=== PATIENT | male | born 1990 | race Two or more races ===

== ENCOUNTER 2016-06-11 20:21 | Emergency (ER) | payer SELFPAY ==
[~2016-06-11] VITALS: Ht 182.9 cm; Wt 113.4 kg
[2016-06-11] MEDS ORDERED: LORAZEPAM 1 MG TABLET ONE (21:17)
[2016-06-11] MEDS: LORAZEPAM 1 MG TABLET PO ONE (21:21)
[2016-06-11] MEDS: LORAZEPAM INJ 2 MG/ML VIAL IV ONE (21:21)
[2016-06-11 22:04] VITALS: BP 135/85
== END 2016-06-11 22:05 | disposition home or self-care (01) ==
LOC: ER 20:24
DX: R00.2 Palpitations (principal); F41.9 Anxiety disorder, unspecified; F15.10 Other stimulant abuse, uncomplicated; F17.210 Nicotine dependence, cigarettes, uncomplicated; F10.20 Alcohol dependence, uncomplicated
CPT/HCPCS: A4606; Z7610

== ENCOUNTER 2018-08-26 14:15 | Emergency (ER) | payer MEDICAID ==
[~2018-08-26] VITALS: Ht 180.3 cm; Wt 112.5 kg
[2018-08-26 14:26] VITALS: BP 150/98
[2018-08-26] MEDS ORDERED: LIDOCAINE 1% INJ 50 ML MDV IJ ONE (15:00)
[2018-08-26] MEDS ORDERED: TDAP [DIPH/PERTUSSIS/TET] 0.5 ML VIAL IM ONE ×2 (15:00→15:10)
[2018-08-26] MEDS ORDERED: LIDOCAINE HCL/MPF 1% 30 ML VIAL IJ ONE (15:25)
== END 2018-08-26 15:57 | disposition home or self-care (01) ==
LOC: ER 14:15
DX: L02.511 Cutaneous abscess of right hand (principal); L03.011 Cellulitis of right finger; F15.90 Other stimulant use, unspecified, uncomplicated; F12.90 Cannabis use, unspecified, uncomplicated; Z59.0 Homelessness; Z98.890 Other specified postprocedural states
CPT/HCPCS: 10060; 73130; 90471; 90715; 99283; A6402 ×2; J3490

== ENCOUNTER 2018-08-29 04:32 | Inpatient (IN) | payer MEDICAID, OTHER ==
[~2018-08-29] VITALS: Ht 180.3 cm; Wt 101.6 kg
--- NOTE | 2018-08-29 04:42 | NUR ---
BIBS. C/O "PAIN IN MY FINGERS FOR 5X HRS" -INJURY NOTED. AOX4. AMBULATORY -ACUTE DISTRESS.
[2018-08-29] MEDS ORDERED: VANCOMYCIN 1 GM in IV D5W 250 ML IV ONE (05:30)
[2018-08-29] MEDS ORDERED: PIPERACILLIN /TAZOBACTAM 3.375 G in IV D5W 50 ML IV ONE (05:30)
[2018-08-29] MEDS ORDERED: PIPERACILLIN /TAZOBACTAM 3.375 G VIAL IV ONE (05:39)
[2018-08-29] MEDS ORDERED: VANCOMYCIN 1 GM VIAL ONE (05:39)
[2018-08-29 05:45] LABS: BASOPHILS # (AUTO) 0.1 /CMM (0.0-0.2); BASOPHILS % (AUTO) 0.4 % (0.0-2.0); EOSINOPHILS % (AUTO) 0.7 % (0.0-6.0); HEMATOCRIT 39 % (39-51); HEMOGLOBIN 13.3 g/dL (13.5-17.5); LYMPHOCYTES # (AUTO) 1.5 /CMM (0.8-4.8); LYMPHOCYTES % (AUTO) 8.3 % (20.0-44.0); MEAN CORPUSCULAR HGB CONC 34 g/dl (31.0-36.0); MEAN CORPUSCULAR VOLUME 91 fL (80-96); MONOCYTES # (AUTO) 0.8 /CMM (0.1-1.30); MONOCYTES % (AUTO) 4.8 % (2.0-12.0); NEUTROPHILS # (AUTO) 15.1 /CMM (1.8-8.9); NEUTROPHILS % (AUTO) 85.8 % (43.0-81.0); PLATELET COUNT (AUTO) 293 /CMM (150-450); WHITE BLOOD COUNT (AUTO) 17.6 K/uL (4.3-11.0)
[2018-08-29 05:55] LABS: CALCIUM, SERUM 8.3 mg/dL (8.5-10.1); CREATININE 0.7 mg/dL (0.6-1.3); POTASSIUM 3.8 mmol/L (3.5-5.1)
[2018-08-29 06:00] LABS: APPEARANCE,URINE Clear (CLEAR); BILIRUBIN,URINE Negative (NEGATIVE); BLOOD, URINE Negative Ery/uL (NEGATIVE); COLOR,URINE Yellow (YELLOW); KETONES,URINE Negative (NEGATIVE); LEUKOCYTE ESTERASE ,URINE Negative (NEGATIVE); NITRITE, URINE Negative (NEGATIVE); PH,URINE 7.5 (5.0-8.0); PROTEIN,URINE Negative (NEGATIVE); UGLUCOSE Negative (NEGATIVE)
[2018-08-29 06:00] LABS: ALBUMIN 3.2 g/dL (3.4-5.0); BILIRUBIN,TOTAL 0.3 mg/dL (0.2-1.0); C-REACTIVE PROTEIN 5.8 mg/dL (0.0-0.9); TOTAL PROTEIN, SERUM 6.8 g/dL (6.4-8.2)
[2018-08-29 06:44] LABS: BACTERIA,URINE Rare /HPF (None Seen); RBC,URINE 0-2 /HPF (0-2); SQUAMOUS EPITHELIAL CELL,UR Rare /HPF (None Seen); WBC,URINE NONE SEEN /HPF (0-3)
--- NOTE | 2018-08-29 08:07 | NUR ---
RECEIVED REPORT FROM KATHIE MILLER. PATIENT RESTING INSIDE ROOM. SLEEPING, VERBALLY RESPONDS TO VERBAL AND TACTILE STIMULI. NO ACUTE DISTRESS AT THIS TIME. WILL CONTINUE TO MONITOR
--- NOTE | 2018-08-29 10:18 | NUR ---
Called [facility] for update, Still waiting to hear from ORTHO
--- NOTE | 2018-08-29 12:06 | NUR ---
PAGED SALMA LICONA FOR CONSULT.
--- NOTE | 2018-08-29 12:29 | NUR ---
PAGED DR. GREEN FOR CONSULT
--- NOTE | 2018-08-29 12:30 | NUR ---
PAGED DR. BARROSO FOR ADMISSION
[2018-08-29] MEDS ORDERED: LIDOCAINE 1%-EPI 1:100,000 20 ML VIAL ONE (12:33)
[2018-08-29] MEDS ORDERED: SULF1TAB48 PO (12:41)
[2018-08-29] MEDS ORDERED: CEPH-570 PO (12:41)
--- NOTE | 2018-08-29 12:41 | NUR ---
CALLED HOUSE SUP FOR MS BED
--- NOTE | 2018-08-29 12:46 | NUR ---
MS 112-1
--- NOTE | 2018-08-29 14:40 | NUR ---
MS1/BENEFITS SPECIALIST TO DE1 - ROOM 112#1 PT ARRIVED VIA GURNEY FROM ER ACCOMPANIED BY KILN FIRER HELPER, TRANSFERRED TO HOSPITAL BED, PT A/O X 4, DENIES ANY PAIN AT THIS TIME. SURGICAL SITE ON RIGHT HAND DRESSED. PT ON ROOM AIR, IV SITE FLUSHED, PATENT WITH NO S/S OF INFECTION. PT ADMITTED FOR FLEXOR TENOSYNOVITIS UNDER THE CARE OF DR. HEARD. WILL BE GETTING REPORT FROM ER NURSE. CL WITHIN REACHED AND SAFETY MAINTAINED.
[2018-08-29] MEDS ORDERED: ZOLPIDEM TARTRATE 5 MG TABLET PO PRN (15:00)
[2018-08-29] MEDS ORDERED: ACETAMINOPHEN 325 MG TABLET PO PRN (15:00)
[2018-08-29] MEDS ORDERED: MAG HYDROX/AL HYDROX/SIMETH 30 ML UDC PO PRN (15:00)
[2018-08-29] MEDS ORDERED: ONDANSETRON HCL/PF 4 MG/2 ML VIAL IVP PRN (15:00)
[2018-08-29] MEDS ORDERED: MAGNESIUM HYDROXIDE 30 ML UDC PO PRN (15:00)
[2018-08-29] MEDS ORDERED: Z GUARD REMEDY 2 OZ OINT TP PRN (15:00)
[2018-08-29] MEDS ORDERED: HYDROCODONE/APAP 5/325MG 1 EACH TABLET PO PRN (15:00)
[2018-08-29 16:00] VITALS: BP 133/87
[2018-08-29] MEDS ORDERED: FEE PK DOSING 1 MIN EA MC ONE (16:35)
--- NOTE | 2018-08-29 17:30 | NUR ---
MS1/RN AM SHIFT END NOTES INFUSION ANTI-BIOTICS ON GOING. PT NOTED WITH NO ACUTE CHANGE OF CONDITION SINCE PT WAS ADMITTED LATE THIS AFTERNOON, ENDORSED TO PM NURSE TO CONTINUE CARE.
[2018-08-29] MEDS ORDERED: PIPERACILLIN /TAZOBACTAM 4.5 G in IV D5W 50 ML IV SCH (18:00)
[2018-08-29] MEDS ORDERED: IV NS 0.9% 250 ML BAG IV ONE (18:00)
[2018-08-29] MEDS: VANCOMYCIN 1.25 GM in IV D5W 500 ML IV SCH (18:46)
--- NOTE | 2018-08-29 19:30 | NUR ---
MS RN NOTE: RECEIVED PT ON BED ASLEEP BUT AROUSES EASILY TO VERBAL AND TACTILE STIMULI. NO ACUTE DISTRESS NOTED. DENIES PAIN AND DISCOMFORT AT THIS TIME. ON ROOM AIR, NO SOB NOTED. IV ON RIGHT ANTECUBITAL #18 INTACT AND PATENT, IVF INFUSING WELL. KEPT CLEAN, DRY AND COMFORTABLE. CALL LIGHT PLACED WITHIN REACH. SAFETY AND FALL PRECAUTIONS OBSERVED AND MAINTAINED. WILL CONTINUE TO MONITOR PT.
[2018-08-29 20:00] VITALS: BP 136/87
[2018-08-29] MEDS: PIPERACILLIN /TAZOBACTAM 3.375 G in IV D5W 50 ML IV SCH (23:10)
[2018-08-30] MEDS: VANCOMYCIN 1.25 GM in IV D5W 500 ML IV SCH ×2 (00:42→08:26)
[2018-08-30 04:00] VITALS: BP 125/78
[2018-08-30] MEDS: PIPERACILLIN /TAZOBACTAM 3.375 G in IV D5W 50 ML IV SCH ×3 (05:18→17:05)
[2018-08-30 06:28] LABS: BASOPHILS # (AUTO) 0.1 /CMM (0.0-0.2); BASOPHILS % (AUTO) 0.6 % (0.0-2.0); EOSINOPHILS % (AUTO) 2.2 % (0.0-6.0); HEMATOCRIT 40 % (39-51); HEMOGLOBIN 13.7 g/dL (13.5-17.5); LYMPHOCYTES # (AUTO) 1.5 /CMM (0.8-4.8); MEAN CORPUSCULAR HGB CONC 34 g/dl (31.0-36.0); MEAN CORPUSCULAR VOLUME 90 fL (80-96); MONOCYTES # (AUTO) 0.7 /CMM (0.1-1.30); MONOCYTES % (AUTO) 6.1 % (2.0-12.0); NEUTROPHILS # (AUTO) 9.1 /CMM (1.8-8.9); NEUTROPHILS % (AUTO) 78.1 % (43.0-81.0); PLATELET COUNT (AUTO) 307 /CMM (150-450); RED BLOOD CELL COUNT(AUTO) 4.44 MIL/uL (4.5-6.0); WHITE BLOOD COUNT (AUTO) 11.7 K/uL (4.3-11.0)
--- NOTE | 2018-08-30 06:31 | NUR ---
MS RN NOTE: NO CHANGES NOTED THROUGHOUT THE SHIFT. NO APPARENT DISTRESS NOTED. NO COMPLAINTS OF PAIN OR DISCOMFORT AT THIS TIME. NO SOB NOTED. IV ON RIGHT ANTECUBITAL #18 INTACT AND PATENT, FLUSHING WELL. CALL LIGHT PLACED WITHIN REACH. KEPT CLEAN, DRY AND COMFORTABLE. SAFETY AND FALL PRECAUTIONS OBSERVED AND MAINTAINED. WILL ENDORSE TO DAY SHIFT RN FOR CONTINUITY OF CARE.
[2018-08-30 06:52] LABS: CALCIUM, SERUM 8.9 mg/dL (8.5-10.1); CREATININE 0.7 mg/dL (0.6-1.3); MAGNESIUM 2.2 mg/dL (1.8-2.4); PHOSPHORUS 4.6 mg/dL (2.5-4.9); POTASSIUM 4.1 mmol/L (3.5-5.1)
--- NOTE | 2018-08-30 07:34 | NUR ---
MS RN NOTE: RECEIVED PT ON BED AWAKE , ALERT , ORIENTED X3 , NO ACUTE DISTRESS NOTED. DENIES PAIN AND DISCOMFORT AT THIS TIME. ON ROOM AIR, NO SOB NOTED. IV ON RIGHT ANTECUBITAL #18 INTACT AND PATENT, WELL. KEPT CLEAN, DRY AND COMFORTABLE. CALL LIGHT PLACED WITHIN REACH. SAFETY AND FALL PRECAUTIONS OBSERVED AND MAINTAINED. WILL CONTINUE TO MONITOR PT.CASTILLO OF CARE DISCUSSED WITH PATIENT ,
[2018-08-30 08:00] VITALS: BP 140/82
--- NOTE | 2018-08-30 13:28 | NUR ---
MS RN NOTE NOTED RT POSTERIOR THIGH WITH WOUND, PX DONE WOUND CARE CONSULT ORDERED ,NOTIFIED TO DR DOS SANTOS WILL F\U
--- NOTE | 2018-08-30 13:57 | NUR ---
SOLAR MAINTENANCE TECHNICIAN NOTE DR DOS SANTOS AT BEDSIDE SEEN WOUND RT THIGH
--- NOTE | 2018-08-30 14:16 | NUR ---
Social service consult requested by Daniel Garsia for homelessness and per pt statement that he uses meth. mat worker attempted to meet with pt at bedside, pt was deep asleep and did not respond to social work professor. Social work will attempt to meet with pt again prior to discharge.
--- NOTE | 2018-08-30 14:44 | NUR ---
ms rn note dr miller surgeon cover dr langley today, spoke with melina salinas endorsed to call ,per dr kasper patient need surgical consult, transferred patient in room 206 with stable condition , report given to melina salinas
--- NOTE | 2018-08-30 14:45 | NUR ---
MS RN NOTES PATIENT TRANSFER FROM [facility] J REPORT GIVEN BY KACI. PATIENT ALERT ORIENTED X 4. NO ACUTE DISTRESS NOTED. SAFETY MEASURES IN PLACE. CALL LIGHT WITHIN REACH. WILL CONTINUE TO MONITOR ACCORDINGLY.
--- NOTE | 2018-08-30 15:36 | NUR ---
MS RN NOTES SPOKE WITH KACI CEVALLOS NOTIFIED REGARDING CONSULT.
[2018-08-30 16:00] VITALS: BP 134/75
[2018-08-30] MEDS: VANCOMYCIN 1.5 GM in IV D5W 500 ML IV SCH (18:42)
--- NOTE | 2018-08-30 19:00 | NUR ---
MS RN NOTES PATIENT IN BED ALERT ORIENTED X 4. NO ACUTE DISTRESS NOTED. BREATHING UNLABORED. NO SOB NOTED. IV ACCESS PATENT AND INTACT, NO REDNESS OR SWELLING NOTED. DUE MEDICATIONS GIVEN, NO ASE NOTED. NEEDS ATTENDED AND ANTICIPATED. KEPT CLEAN DRY AND COMFORTABLE. SAFETY MEASURES IN PLACE. CALL LIGHT WITHIN REACH. ENDORSED TO NIGHT NURSE FOR CONTINUITY OF CARE.
[2018-08-30 20:00] VITALS: BP 120/78
--- NOTE | 2018-08-30 20:11 | NUR ---
RN OPENING NOTES RECEIVED PATIENT RESTING COMFORTABLY IN BED. PATIENT SHOWS NO SIGNS OF RESPIRATORY DISTRESS. NO SIGNS SHORTNESS OF BREATH. IV SITE INTACT. PATIENT SHOWS NO SIGNS OF PAIN OR DISCOMFORT AT THIS TIME. SAFETY PRECAUTIONS IMPLEMENTED. CALL LIGHT WITHIN REACH. WILL CONTINUE TO MONITOR PATIENT THROUGHOUT THE SHIFT.
[2018-08-30 20:12] VITALS: BP_SYST 120; BP_SYST 142; BP_DIAS 78; BP_DIAS 81
[2018-08-31] MEDS: VANCOMYCIN 1.5 GM in IV D5W 500 ML IV SCH ×2 (02:08→10:10)
[2018-08-31 04:00] VITALS: BP 121/80
--- NOTE | 2018-08-31 05:11 | NUR ---
RN NOTES HAND/FINGER WOUNDS WAS IRRIGATED WITH NS, WRAPPED WITH XEROFORM, THEN TAPED WITH KERLIX. THIGH ABSCESS WAS IRRIGATED WITH NS, PAT DRY, APPLIED XEROFORM DRESSING, AND TAPED DOWN WITH ABD. DRAINAGE IS SEEN.
[2018-08-31] MEDS: PIPERACILLIN /TAZOBACTAM 3.375 G in IV D5W 50 ML IV SCH ×4 (06:31→11:33)
[2018-08-31 06:36] LABS: BASOPHILS # (AUTO) 0.1 /CMM (0.0-0.2); BASOPHILS % (AUTO) 0.9 % (0.0-2.0); EOSINOPHILS % (AUTO) 4.2 % (0.0-6.0); HEMATOCRIT 40 % (39-51); HEMOGLOBIN 13.9 g/dL (13.5-17.5); LYMPHOCYTES # (AUTO) 1.6 /CMM (0.8-4.8); LYMPHOCYTES % (AUTO) 19.4 % (20.0-44.0); MEAN CORPUSCULAR HGB CONC 35 g/dl (31.0-36.0); MEAN CORPUSCULAR VOLUME 91 fL (80-96); MONOCYTES # (AUTO) 0.6 /CMM (0.1-1.30); MONOCYTES % (AUTO) 7.5 % (2.0-12.0); NEUTROPHILS # (AUTO) 5.6 /CMM (1.8-8.9); PLATELET COUNT (AUTO) 323 /CMM (150-450); WHITE BLOOD COUNT (AUTO) 8.2 K/uL (4.3-11.0)
[2018-08-31 06:45] LABS: CALCIUM, SERUM 8.7 mg/dL (8.5-10.1); CREATININE 0.8 mg/dL (0.6-1.3); PHOSPHORUS 4.5 mg/dL (2.5-4.9); POTASSIUM 4.1 mmol/L (3.5-5.1)
--- NOTE | 2018-08-31 07:00 | NUR ---
RN CLOSING NOTES PATIENT IS RESTING COMFORTABLY IN BED. PATIENT SHOWS NO SIGNS OF RESPIRATORY DISTRESS. NO SIGNS OF SHORTNESS OF BREATH. IV SITE INTACT. PATIENT SHOWS NO SIGNS OF PAIN OR DISCOMFORT AT THIS TIME. WOUND TX WAS IMPLEMENTED. SAFETY PRECAUTIONS IMPLEMENTED. CALL LIGHT WITHIN REACH. WILL ENDORSE TO AM RN.
--- NOTE | 2018-08-31 07:21 | NUR ---
WOUND CARE CONSULT WOUND CARE RECEIVED CONSULT FOR R POSTERIOR THIGH WOUND/ABSCESS. WOUND CARE WILL DEFER CONSULT AND TREATMENT PLAN TO GENERAL SURGEON DR KOHLER WHO IS CURRENTLY FOLLOWING THIS PATIENT. PLASTIC SURGICAL TEAM ALSO FOLLOWING THIS PATIENT FOR FINGER WOUNDS. PATIENT WITH PHILIP AT 22, WILL SEE PRN.
--- NOTE | 2018-08-31 07:36 | NUR ---
RN OPENING NOTE PT WAS RECEIVED IN BED AT LOWEST AND LOCKED POSITION WITH SIDE RAILS UPX2, BREATHING EVEN AND UNLABORED ON RA, A/O X4, NO S/S OF ANY DISTRESS OR PAIN AT THIS TIME, IV IS PATENT AND INTACT, AMBULATORY, SAFETY PRECAUTIONS IN PLACE, CALL LIGHT WITHIN REACH, WILL MONITOR PT ACCORDINGLY
[2018-08-31 08:00] VITALS: BP 122/71
--- NOTE | 2018-08-31 08:10 | NUR ---
RN NOTE PT WAS NPO AT THIS FOR SCHEDULED INCISION AND DRAINAGE UNDER ANESTHESIA, HOWEVER BY MISTAKE BAR WAITER/WAITRESS GAVE PT FOOD WHICH HE SCARFED DOWN, MADE AWARE.
--- NOTE | 2018-08-31 10:32 | NUR ---
RN NOTE DR KOHLER OFFICE WAS PAGED REGARDING STATUS OF PT I&D, AWAITING RESPONSE
[2018-08-31] MEDS ORDERED: LORAZEPAM INJ 2 MG/ML VIAL IV PRN (12:00)
[2018-08-31] MEDS ORDERED: LORAZEPAM 1 MG TABLET PO PRN (12:00)
[2018-08-31 12:03] VITALS: BP 122/71
--- NOTE | 2018-08-31 14:25 | NUR ---
Social service consult requested by Dr. Sanchez for homelessness. Pt. is a 28 year old male who was admitted to [facility] for flexor tenosynovitis. SW met with pt. bedside. Pt. is alert and oriented x 4. Pt. appears hostile and angry when answering questions. Pt. reluctantly participated in the assessment. Pt. states he is homeless for 35 days. Prior to being homeless, pt. was residing with his family in [place]. Pt. would not elaborate as to why he left his family. Pt. does not have an emergency contact. Pt. is rude with SW when answering questions. Pt. declined all resources. Pt. denies drug and alcohol use. Pt. is not very forthcoming with information at this time. No other social service needs are required at this time.
--- NOTE | 2018-08-31 14:55 | NUR ---
AMA NOTE PT LEFT AMA AT THIS TIME, HE STATED THAT HE DID NOT LIKE THAT HE HAD TO STAY NPO FOR INISION AND DRAINAGE THAT WAS SCHEDULED. HE WAS INFORMED AND EDUCATED TO WHY HE SHOULD STAY AND WHY HE NEED THE INCISION AND DRAINAGE TO BE DONE. HE DID NOT WANT TO HEAR IT AND SAID HE JUST WANTED TO LEAVE, HE DID NOT WANT ANY PAPERWORK EITHER. IV AND ID BAND WERE REMOVED AND HE LEFT AMA AT THIS TIME. Addendum: 08/31/18 at 1542 by JENNIFER MURPHY RN Unique Id: [id number]
== END 2018-08-31 14:55 | disposition left against medical advice (07) | DRG 364 ==
LOC: ER 04:34 → MEDSG1 14:24 → MEDSG2 08-30 14:40 → MED 08-30 15:24 → MEDSG2 08-30 15:26
PROC: 0J9J0ZZ Drainage of Right Hand Subcutaneous Tissue and Fascia, Open Approach (ICD-10-PCS; principal; 2018-08-29)
DX: L03.011 Cellulitis of right finger (principal); L02.415 Cutaneous abscess of right lower limb; F15.10 Other stimulant abuse, uncomplicated; L02.511 Cutaneous abscess of right hand; M65.9 Synovitis and tenosynovitis, unspecified; Z59.0 Homelessness; Z72.0 Tobacco use
CPT/HCPCS: 36415; 71045-TC; 73140-TC; 80048-TC; 80053-TC; 80061-TC; 80202-TC; 81000-TC; 83605-TC; 83735-TC; 84100-TC; 85025-TC; 85652-TC; 85730-TC; 86140-TC; 86850-TC; 87070-TC; 87081-TC; A6253; A6402; G0378; J2543; J3370; J3490; J7050; J7060

== ENCOUNTER 2018-09-23 00:34 | Emergency (ER) | payer OTHER ==
[~2018-09-23] VITALS: Ht 177.8 cm; Wt 95.3 kg
[~2018-09-23 00:34] MED LIST: CEPH-570 PO; SULF1TAB48 PO
--- NOTE | 2018-09-23 00:44 | NUR ---
PT WAS BIB RA WITH A C/O DRUG ABUSE/METH ABUSE. PT DENIES SI AND AUDITORY HALLUCINATIONS. PT APPEARS EMOTIONAL. PT WAS TRIAGED AND TAKEN TO ROOM #12. PT IS ON THE MONITOR AND CONTINUOUS PULSE OX. URINE SAMPLE WAS OBTAINED AND SENT TO LAB.
[2018-09-23] MEDS ORDERED: MAG HYDROX/AL HYDROX/SIMETH 30 ML UDC ONE (01:15)
--- NOTE | 2018-09-23 02:08 | NUR ---
PT APPEARS TO BE SLEEPING SOUNDLY WITH NO S/S OF PAIN OR DISTRESS. RESP EVEN AND UNLABORED. VSS. WILL CONTINUE TO MONITOR THE PT.
--- NOTE | 2018-09-23 03:45 | NUR ---
PT APPEARS TO BE SLEEPING SOUNDLY WITH NO S/S OF PAIN OR DISTRESS.
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
--- NOTE | 2018-09-23 05:50 | NUR ---
PT WAS MOVED TO ER7. PT REC'D WARM BLANKETS AND APPEARS TO BE RESTING COMFORTABLY.
--- NOTE | 2018-09-23 06:39 | NUR ---
PT APPEARS TO BE RESTING COMFORTABLY WITH NO S/S OF PAIN OR DISTRESS.
--- NOTE | 2018-09-23 07:24 | NUR ---
REPORT GIVEN TO ANGELA TINSLEY FOR ERA.
--- NOTE | 2018-09-23 08:00 | NUR ---
patient still sleeping. no distress noted. will cont to monitor.
[2018-09-23 09:30] VITALS: BP 134/85
--- NOTE | 2018-09-23 10:00 | NUR ---
BARTOLO received a call from ANGELA Clark in ED requesting for SW consult for homelessness. Pt. is a 28 year old male who was brought to [facility] ED via ambulance for methamphetamine abuse. BARTOLO and pt's ANGELA Clark met with pt. bedside. Pt. is alert and oriented x 4. Pt. appears disheveled. SW is familiar with pt. from a previous inpatient admission where pt. left AMA. Pt. states he is homeless and has been for the past 72 days. BARTOLO offered pt. homeless penitentiary placement, however pt. declined stating he will take the resources. Pt. appears to be paranoid about "gangsters" and stated, " too many gangsters are after me." SW inquired with pt. if he has any gang affiliation and pt. stated, "No." Pt. uses methamphetamines and has been for the past 3 years. BARTOLO offered pt. drug treatment programs and referrals, however pt. declined stating again, " too many gangsters are after me." BARTOLO encouraged pt. to take the resources, which he did. BARTOLO gave pt. the following resources: [facility] located at [address] [facility] ; [employer] [facility] [place], [address] [place] [address], [place]. [place] ; [facility] [place], [address] [facility] ; [facility] Homeless Resource Directory which includes food stamps, transitional housing, showers and hot meals etc; Mental Health clinics such as [facility] ; [facility] ; Health clinics;[facility] and Alcohol treatment centers such as [facility], ; [facility] Substance Abuse Hotline and [facility] . Pt. was provided with a TAP card, sandwich and water. Homeless patient waiver form was signed by the pt. and placed in pt's chart along with copy of resources that were provided to the pt.
--- NOTE | 2018-09-23 10:06 | NUR ---
PATIENT SEEN BY REAL ESTATE AGENCY LICENSEE ABDIAZIZ, OFFERED SKILLED NURSING RESOURCES, AND A TAP CARD, GIVEN FOOD AND WATER. PATIENT GIVEN DISCHARGE INSTRUCTIONS AND VERBALIZED UNDERSTANDING. LEFT IN STABLE CONDITION.
== END 2018-09-23 10:10 | disposition home or self-care (01) ==
LOC: ER 00:35
DX: F15.90 Other stimulant use, unspecified, uncomplicated (principal); Z98.890 Other specified postprocedural states

== ENCOUNTER 2018-11-15 12:46 | Emergency (ER) | payer OTHER ==
[~2018-11-15] VITALS: Ht 182.9 cm; Wt 92.1 kg
[2018-11-15 13:07] VITALS: BP 100/75
--- NOTE | 2018-11-15 14:35 | NUR ---
For discharge-Patient discharged to home in stable condition. Written and verbal after care instructions given. Patient verbalizes understanding of instruction.
== END 2018-11-15 14:36 | disposition home or self-care (01) ==
LOC: ER 12:48
DX: S60.462A Insect bite (nonvenomous) of right middle finger, initial encounter (principal); S90.562A Insect bite (nonvenomous), left ankle, initial encounter; F10.10 Alcohol abuse, uncomplicated; F17.200 Nicotine dependence, unspecified, uncomplicated; F12.10 Cannabis abuse, uncomplicated; F15.10 Other stimulant abuse, uncomplicated; Y90.9 Presence of alcohol in blood, level not specified; Z98.890 Other specified postprocedural states; Z59.0 Homelessness; W57.XXXA Bitten or stung by nonvenomous insect and other nonvenomous arthropods, initial encounter; Y93.89 Activity, other specified; Y92.89 Other specified places as the place of occurrence of the external cause; Y99.8 Other external cause status

== ENCOUNTER 2019-01-30 01:55 | Emergency (ER) | payer OTHER ==
[~2019-01-30] VITALS: Ht 177.8 cm; Wt 81.6 kg
[2019-01-30 02:28] VITALS: BP 146/73
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
[2019-01-30] MEDS ORDERED: LORAZEPAM 1 MG TABLET ONE (02:57)
[2019-01-30] MEDS ORDERED: LORAZEPAM 1 MG TABLET PO ONE (03:00)
--- NOTE | 2019-01-30 03:40 | NUR ---
Patient eloped from facility. ER MD notified.
== END 2019-01-30 04:35 | disposition left against medical advice (07) ==
LOC: ER 01:57
DX: F41.9 Anxiety disorder, unspecified (principal); F15.90 Other stimulant use, unspecified, uncomplicated; F17.200 Nicotine dependence, unspecified, uncomplicated; Z98.890 Other specified postprocedural states; Z59.0 Homelessness

== ENCOUNTER 2020-08-17 13:34 | Emergency (ER) | payer OTHER ==
[~2020-08-17] VITALS: Ht 180.3 cm; Wt 127.0 kg
[2020-08-17 13:35] VITALS: BP 142/100
--- NOTE | 2020-08-17 14:10 | NUR ---
SEEN AND EXAMINED BY .
[2020-08-17] MEDS ORDERED: NEOM10DR11 OT (14:13)
--- NOTE | 2020-08-17 14:19 | NUR ---
Patient discharged to home in stable condition. Written and verbal after care instructions given. Patient verbalizes understanding of instruction.
== END 2020-08-17 14:20 | disposition home or self-care (01) ==
LOC: ER 13:39
DX: H60.91 Unspecified otitis externa, right ear (principal); F12.90 Cannabis use, unspecified, uncomplicated; Z98.890 Other specified postprocedural states; Z79.899 Other long term (current) drug therapy

== ENCOUNTER 2020-12-08 15:26 | Emergency (ER) | payer OTHER ==
[~2020-12-08] VITALS: Ht 162.6 cm; Wt 108.9 kg
[2020-12-08 15:26] VITALS: BP 125/96
[~2020-12-08 15:26] MED LIST changes: +NEOM10DR11 OT
[2020-12-08] MEDS ORDERED: OLANZAPINE 5 MG TABLET PO ONE (17:30)
[2020-12-08] MEDS ORDERED: OLAN5TAB3 PO (17:36)
[2020-12-08] MEDS ORDERED: OLANZAPINE 5 MG TABLET ONE (17:44)
--- NOTE | 2020-12-08 17:49 | NUR ---
Patient discharged to home in stable condition. Written and verbal after care instructions given. Patient verbalizes understanding of instruction. Pt ambulatory with a steady gait
== END 2020-12-08 17:50 | disposition home or self-care (01) ==
LOC: ER 15:28
DX: F29 Unspecified psychosis not due to a substance or known physiological condition (principal); F22 Delusional disorders; F15.10 Other stimulant abuse, uncomplicated; F12.90 Cannabis use, unspecified, uncomplicated; Z98.890 Other specified postprocedural states; Z79.899 Other long term (current) drug therapy
CPT/HCPCS: 70360-TC